=== PATIENT | female | born 1945 | race Caucasian/White ===

== ENCOUNTER 2017-05-16 13:05 | Outpatient (CLI) | payer OTHER | END 2017-05-16 20:36 | disposition home or self-care (01) | LOC: SMA 13:05 | PROVIDERS: ATTEND Family Medicine | DX: Z12.31 Encounter for screening mammogram for malignant neoplasm of breast (principal) | CPT/HCPCS: G0202 ==

== ENCOUNTER 2018-09-04 10:30 | Outpatient (CLI) | payer OTHER | END 2018-09-04 21:29 | disposition home or self-care (01) | LOC: SMA 10:30 | DX: Z12.31 Encounter for screening mammogram for malignant neoplasm of breast (principal) | CPT/HCPCS: 77067 ==

== ENCOUNTER 2022-11-23 00:55 | Inpatient (IN) | payer OTHER, MEDICAID ==
[~2022-11-23] VITALS: Ht 160 cm; Wt 57.6 kg
[2022-11-23 01:07] VITALS: BP_SYST 156
[2022-11-23 03:37] LABS: BASOPHILS % (AUTO) 0.3 % (0.0-2.0); EOSINOPHILS # (AUTO) 0.1 K/uL (0.0-0.4); EOSINOPHILS % (AUTO) 1.4 % (0.0-4.0); HEMATOCRIT 28.1 % (36-48); HEMOGLOBIN 9.4 g/dL (12.0-16.0); LYMPHOCYTES # (AUTO) 0.6 K/uL (1.0-5.5); MEAN CORPUSCULAR HEMOGLOBIN 30 pg (27-31); MEAN CORPUSCULAR HGB CONC 33 % (32-36); MEAN CORPUSCULAR VOLUME 89 fL (79.0-98.0); MONOCYTES # (AUTO) 0.6 K/uL (0.0-1.0); MONOCYTES % (AUTO) 7.9 % (1.7-9.3); NEUTROPHILS # (AUTO) 6.8 K/uL (1.8-7.7); NEUTROPHILS % (AUTO) 83.4 % (40.0-70.0); PLATELET COUNT (AUTO) 291 K/uL (130-430); RED BLOOD CELL COUNT(AUTO) 3.14 MIL/uL (4.2-6.2); WHITE BLOOD COUNT (AUTO) 8.1 K/uL (4.8-10.8)
[2022-11-23 03:55] LABS: ANION GAP 7 (5-15); CALCIUM 7.9 mg/dL (8.4-11.0); CHLORIDE 101 mmol/L (98-107); CREATININE 0.54 mg/dL (0.55-1.30); GLUCOSE 110 mg/dL (70-99); UREA NITROGEN, BLOOD 14 mg/dL (8-21)
[2022-11-23 04:02] LABS: ALANINE AMINOTRANSFERASE 23 U/L (12-78); ALBUMIN 2.9 g/dL (3.4-4.8); ASPARTATE AMINOTRANSFERASE 16 U/L (10-37); TOTAL BILIRUBIN 0.5 mg/dL (0.0-1.0)
[2022-11-23] MEDS ORDERED: HEPARIN SODIUM,PORCINE 5,000 UNITS/ML VIAL IVP ONE (05:00)
[2022-11-23] MEDS ORDERED: HEPARIN 25,000 UNITS/D5W 250ML 250 ML IV ONE (05:00)
[2022-11-23 05:17] LABS: INR 0.9 (0.8-1.2); PROTHROMBIN TIME 9.8 SECS (9.5-12.5)
[2022-11-23] MEDS ORDERED: ACET325T PO (06:40)
[2022-11-23] MEDS ORDERED: LIP40 PO (06:46)
[2022-11-23] MEDS ORDERED: CYCL10TA24 PO (06:46)
[2022-11-23] MEDS ORDERED: ESCI10TA PO (06:46)
[2022-11-23] MEDS ORDERED: AMLO5TAB4 PO (06:46)
[2022-11-23] MEDS ORDERED: DOCU-144 PO (06:46)
[2022-11-23] MEDS ORDERED: HYDR-3919 PO (07:02)
[2022-11-23] MEDS ORDERED: [UNRECOGNIZED DRUG - CODE] TD (07:02)
[2022-11-23] MEDS ORDERED: HYDR-4037 PO (07:02)
[2022-11-23] MEDS ORDERED: LISI40TA20 PO (07:02)
[2022-11-23] MEDS ORDERED: ASCO500T20 PO (07:02)
[2022-11-23] MEDS ORDERED: FERR-57 PO (07:02)
[2022-11-23] MEDS ORDERED: ZOFODT4 PO (07:02)
[2022-11-23] MEDS ORDERED: METO50TA16 PO (07:02)
[2022-11-23] MEDS ORDERED: LATA7.5D EACH EYE (07:02)
[2022-11-23] MEDS ORDERED: PANT40TA45 PO (07:02)
[2022-11-23 09:50] VITALS: BP_SYST 157
[2022-11-23 12:00] VITALS: BP_SYST 148
[2022-11-23 13:24] VITALS: BP_SYST 157
[2022-11-23 16:00] VITALS: BP_SYST 142
[2022-11-23 20:10] VITALS: BP_SYST 155
[2022-11-23] MEDS: PANTOPRAZOLE SODIUM 40 MG/VIAL (PROTONIX) IVP SCH (22:57)
[2022-11-24 00:14] VITALS: BP_SYST 153
[2022-11-24 07:18] LABS: TOTAL IRON BIND. CAPACITY 266 ug/dL (250-450)
[2022-11-24 07:32] LABS: BILIRUBIN,URINE NEGATIVE (NEGATIVE); CLARITY/URINE CLEAR (CLEAR); COLOR,URINE YELLOW (YELLOW); GLUCOSE,URINE NEGATIVE (NEGATIVE); KETONES,URINE NEGATIVE (NEGATIVE); LEUKOCYTE ESTERASE ,URINE NEGATIVE (NEGATIVE); NITRITE, URINE NEGATIVE (NEGATIVE); PROTEIN URINE NEGATIVE (NEGATIVE); UROBILINOGEN,URINE 0.2 (0.2-1.0)
[2022-11-24 07:41] LABS: BLOOD, URINE TRACE (NEGATIVE)
[2022-11-24 07:58] LABS: BACTERIA,URINE RARE /HPF (None Seen); MUCUS,URINE 1+ /LPF (None Seen); RBC,URINE 0-3 /HPF (0-3); WBC,URINE 0-3 /HPF (0-3)
[2022-11-24 08:00] VITALS: BP_SYST 144
[2022-11-24] MEDS: PANTOPRAZOLE SODIUM 40 MG/VIAL (PROTONIX) IVP SCH ×2 (09:02→22:05)
[2022-11-24 11:21] LABS: BASOPHILS % (AUTO) 0.6 % (0.0-2.0); EOSINOPHILS # (AUTO) 0.2 K/uL (0.0-0.4); EOSINOPHILS % (AUTO) 2.5 % (0.0-4.0); HEMATOCRIT 28.1 % (36-48); LYMPHOCYTES # (AUTO) 0.7 K/uL (1.0-5.5); MEAN CORPUSCULAR HEMOGLOBIN 29 pg (27-31); MEAN CORPUSCULAR HGB CONC 32 % (32-36); MEAN CORPUSCULAR VOLUME 90 fL (79.0-98.0); MONOCYTES # (AUTO) 0.6 K/uL (0.0-1.0); MONOCYTES % (AUTO) 8.1 % (1.7-9.3); NEUTROPHILS # (AUTO) 5.8 K/uL (1.8-7.7); NEUTROPHILS % (AUTO) 79.8 % (40.0-70.0); PLATELET COUNT (AUTO) 273 K/uL (130-430); RED BLOOD CELL COUNT(AUTO) 3.12 MIL/uL (4.2-6.2); RED CELL DISTRIBUTION WIDTH 15.2 % (9.0-15.0); WHITE BLOOD COUNT (AUTO) 7.3 K/uL (4.8-10.8)
[2022-11-24 11:26] VITALS: BP_SYST 137
[2022-11-24] MEDS ORDERED: LANS30CA53 PO (12:14)
[2022-11-24 15:27] VITALS: BP_SYST 136
[2022-11-24] MEDS: ACETAMINOPHEN 325 MG TABLET PO PRN (18:52)
[2022-11-24 20:00] VITALS: BP_SYST 162
[2022-11-24] MEDS: LATANOPROST 2.5 ML DROPS (XALATAN) OP SCH (21:55)
[2022-11-24] MEDS ORDERED: METOPROLOL SUCCINATE 50 MG TAB.SR.24H (TOPROL XL) PO ONE (22:15)
[2022-11-24 23:33] VITALS: BP_SYST 162
[2022-11-25 01:21] VITALS: BP_SYST 153
[2022-11-25 08:18] VITALS: BP_SYST 130
[2022-11-25] MEDS ORDERED: ESCITALOPRAM OXALATE 10 MG TABLET PO SCH (09:00)
[2022-11-25] MEDS: lisinopriL 20 MG TABLET PO SCH (09:15)
[2022-11-25] MEDS: CITALOPRAM HYDROBROMIDE 20 MG TABLET PO SCH (09:15)
[2022-11-25] MEDS: ATORVASTATIN 20 MG TABLET PO SCH (09:16)
[2022-11-25] MEDS: METOPROLOL SUCCINATE 50 MG TAB.SR.24H (TOPROL XL) PO SCH (09:16)
[2022-11-25] MEDS: PANTOPRAZOLE SODIUM 40 MG/VIAL (PROTONIX) IVP SCH ×2 (09:18→23:12)
[2022-11-25 10:06] LABS: FOLATE (FOLIC ACID) 12.6 ng/mL (>3.0)
[2022-11-25 11:34] VITALS: BP_SYST 147
[2022-11-25 15:40] VITALS: BP_SYST 149
[2022-11-25 20:00] VITALS: BP_SYST 141
[2022-11-25] MEDS: LATANOPROST 2.5 ML DROPS (XALATAN) OP SCH (21:00)
[2022-11-25] MEDS: FERROUS SULFATE 325 MG TABLET.DR PO SCH (22:06)
[2022-11-26] MEDS: ACETAMINOPHEN 325 MG TABLET PO PRN (00:27)
[2022-11-26 00:48] VITALS: BP_SYST 144
[2022-11-26 08:05] VITALS: BP_SYST 129
[2022-11-26] MEDS: ATORVASTATIN 20 MG TABLET PO SCH (09:19)
[2022-11-26] MEDS: CITALOPRAM HYDROBROMIDE 20 MG TABLET PO SCH (09:19)
[2022-11-26] MEDS: METOPROLOL SUCCINATE 50 MG TAB.SR.24H (TOPROL XL) PO SCH (09:20)
[2022-11-26] MEDS: FERROUS SULFATE 325 MG TABLET.DR PO SCH ×2 (09:20→21:28)
[2022-11-26] MEDS: lisinopriL 20 MG TABLET PO SCH (09:21)
[2022-11-26] MEDS ORDERED: ASPIRIN 81 MG TAB.CHEW PO ONE (11:30)
[2022-11-26 11:32] VITALS: BP_SYST 154
[2022-11-26] MEDS: PANTOPRAZOLE SODIUM 40 MG/VIAL (PROTONIX) IVP SCH ×2 (11:47→21:54)
[2022-11-26] MEDS ORDERED: SUCR1TAB2 PO (14:05)
[2022-11-26] MEDS ORDERED: ASPI-1393 PO (14:05)
[2022-11-26 15:19] VITALS: BP_SYST 144
[2022-11-26 20:00] VITALS: BP_SYST 141
[2022-11-26] MEDS: LATANOPROST 2.5 ML DROPS (XALATAN) OP SCH (21:00)
[2022-11-27] VITALS: BP_SYST 146
[2022-11-27 07:43] LABS: BASOPHILS % (AUTO) 0.9 % (0.0-2.0); EOSINOPHILS # (AUTO) 0.2 K/uL (0.0-0.4); EOSINOPHILS % (AUTO) 3.2 % (0.0-4.0); HEMATOCRIT 28.6 % (36-48); HEMOGLOBIN 9.4 g/dL (12.0-16.0); LYMPHOCYTES # (AUTO) 0.7 K/uL (1.0-5.5); LYMPHOCYTES % (AUTO) 13.1 % (20.5-51.5); MEAN CORPUSCULAR HEMOGLOBIN 28 pg (27-31); MEAN CORPUSCULAR HGB CONC 33 % (32-36); MEAN CORPUSCULAR VOLUME 87 fL (79.0-98.0); MONOCYTES # (AUTO) 0.4 K/uL (0.0-1.0); MONOCYTES % (AUTO) 7.8 % (1.7-9.3); NEUTROPHILS # (AUTO) 4.1 K/uL (1.8-7.7); PLATELET COUNT (AUTO) 329 K/uL (130-430); RED BLOOD CELL COUNT(AUTO) 3.29 MIL/uL (4.2-6.2); RED CELL DISTRIBUTION WIDTH 15.3 % (9.0-15.0); WHITE BLOOD COUNT (AUTO) 5.4 K/uL (4.8-10.8)
[2022-11-27 07:50] VITALS: BP_SYST 144
[2022-11-27 08:04] LABS: ANION GAP 7 (5-15); CALCIUM 8.2 mg/dL (8.4-11.0); CHLORIDE 98 mmol/L (98-107); CREATININE 0.52 mg/dL (0.55-1.30); GLUCOSE 104 mg/dL (70-99); UREA NITROGEN, BLOOD 17 mg/dL (8-21)
[2022-11-27] MEDS: PANTOPRAZOLE SODIUM 40 MG/VIAL (PROTONIX) IVP SCH ×2 (08:34→22:05)
[2022-11-27] MEDS: ASPIRIN 81 MG TAB.CHEW PO SCH (08:34)
[2022-11-27] MEDS: ATORVASTATIN 20 MG TABLET PO SCH (08:34)
[2022-11-27] MEDS: FERROUS SULFATE 325 MG TABLET.DR PO SCH ×2 (08:34→22:06)
[2022-11-27] MEDS: lisinopriL 20 MG TABLET PO SCH (08:35)
[2022-11-27] MEDS: CITALOPRAM HYDROBROMIDE 20 MG TABLET PO SCH (08:35)
[2022-11-27] MEDS: METOPROLOL SUCCINATE 50 MG TAB.SR.24H (TOPROL XL) PO SCH (08:36)
[2022-11-27 11:24] VITALS: BP_SYST 141
[2022-11-27 16:25] VITALS: BP_SYST 119
[2022-11-27 20:00] VITALS: BP_SYST 141
[2022-11-27] MEDS: ACETAMINOPHEN 325 MG TABLET PO PRN (20:04)
[2022-11-27] MEDS: LATANOPROST 2.5 ML DROPS (XALATAN) OP SCH (22:06)
[2022-11-28] VITALS (7 sets, daily range): BP systolic 137–156
[2022-11-28 07:33] LABS: BASOPHILS # (AUTO) 0.1 K/uL (0.0-0.2); BASOPHILS % (AUTO) 0.9 % (0.0-2.0); EOSINOPHILS # (AUTO) 0.2 K/uL (0.0-0.4); EOSINOPHILS % (AUTO) 4.1 % (0.0-4.0); LYMPHOCYTES # (AUTO) 0.7 K/uL (1.0-5.5); LYMPHOCYTES % (AUTO) 12.4 % (20.5-51.5); MEAN CORPUSCULAR HEMOGLOBIN 29 pg (27-31); MEAN CORPUSCULAR HGB CONC 33 % (32-36); MEAN CORPUSCULAR VOLUME 87 fL (79.0-98.0); MONOCYTES # (AUTO) 0.5 K/uL (0.0-1.0); MONOCYTES % (AUTO) 9.6 % (1.7-9.3); PLATELET COUNT (AUTO) 355 K/uL (130-430); RED BLOOD CELL COUNT(AUTO) 3.09 MIL/uL (4.2-6.2); RED CELL DISTRIBUTION WIDTH 15.5 % (9.0-15.0); WHITE BLOOD COUNT (AUTO) 5.5 K/uL (4.8-10.8)
[2022-11-28 07:43] LABS: ANION GAP 6 (5-15); CALCIUM 8.1 mg/dL (8.4-11.0); CHLORIDE 96 mmol/L (98-107); CREATININE 0.53 mg/dL (0.55-1.30); GLUCOSE 94 mg/dL (70-99); UREA NITROGEN, BLOOD 17 mg/dL (8-21)
[2022-11-28] MEDS: ATORVASTATIN 20 MG TABLET PO SCH (08:48)
[2022-11-28] MEDS: FERROUS SULFATE 325 MG TABLET.DR PO SCH ×2 (08:48→20:18)
[2022-11-28] MEDS: CITALOPRAM HYDROBROMIDE 20 MG TABLET PO SCH (08:48)
[2022-11-28] MEDS: PANTOPRAZOLE SODIUM 40 MG/VIAL (PROTONIX) IVP SCH ×2 (08:48→20:17)
[2022-11-28] MEDS: lisinopriL 20 MG TABLET PO SCH (08:49)
[2022-11-28] MEDS: ASPIRIN 81 MG TAB.CHEW PO SCH (08:49)
[2022-11-28] MEDS: METOPROLOL SUCCINATE 50 MG TAB.SR.24H (TOPROL XL) PO SCH (08:49)
[2022-11-28] MEDS: NACL 0.9% 1,000 ML IV SCH ×2 (14:43→20:18)
[2022-11-28] MEDS: LATANOPROST 2.5 ML DROPS (XALATAN) OP SCH (20:18)
[2022-11-29] VITALS: BP_SYST 131
[2022-11-29] MEDS: NACL 0.9% 1,000 ML IV SCH ×2 (02:52→17:08)
[2022-11-29 07:33] LABS: BASOPHILS % (AUTO) 0.7 % (0.0-2.0); EOSINOPHILS # (AUTO) 0.2 K/uL (0.0-0.4); EOSINOPHILS % (AUTO) 3.3 % (0.0-4.0); HEMATOCRIT 28.3 % (36-48); HEMOGLOBIN 9.3 g/dL (12.0-16.0); LYMPHOCYTES # (AUTO) 0.6 K/uL (1.0-5.5); LYMPHOCYTES % (AUTO) 10.2 % (20.5-51.5); MEAN CORPUSCULAR HEMOGLOBIN 28 pg (27-31); MEAN CORPUSCULAR HGB CONC 33 % (32-36); MEAN CORPUSCULAR VOLUME 87 fL (79.0-98.0); MONOCYTES # (AUTO) 0.5 K/uL (0.0-1.0); MONOCYTES % (AUTO) 8.9 % (1.7-9.3); NEUTROPHILS # (AUTO) 4.6 K/uL (1.8-7.7); NEUTROPHILS % (AUTO) 76.9 % (40.0-70.0); PLATELET COUNT (AUTO) 378 K/uL (130-430); RED BLOOD CELL COUNT(AUTO) 3.26 MIL/uL (4.2-6.2); RED CELL DISTRIBUTION WIDTH 15.3 % (9.0-15.0); WHITE BLOOD COUNT (AUTO) 5.9 K/uL (4.8-10.8)
[2022-11-29 07:59] LABS: ALANINE AMINOTRANSFERASE 27 U/L (12-78); ALBUMIN 2.8 g/dL (3.4-4.8); ANION GAP 6 (5-15); ASPARTATE AMINOTRANSFERASE 17 U/L (10-37); CHLORIDE 99 mmol/L (98-107); CREATININE 0.54 mg/dL (0.55-1.30); GLUCOSE 91 mg/dL (70-99); TOTAL BILIRUBIN 0.2 mg/dL (0.0-1.0); UREA NITROGEN, BLOOD 14 mg/dL (8-21)
[2022-11-29] MEDS: PANTOPRAZOLE SODIUM 40 MG/VIAL (PROTONIX) IVP SCH ×2 (09:00→21:28)
[2022-11-29] MEDS: ATORVASTATIN 20 MG TABLET PO SCH (09:00)
[2022-11-29] MEDS: ASPIRIN 81 MG TAB.CHEW PO SCH (09:00)
[2022-11-29] MEDS: FERROUS SULFATE 325 MG TABLET.DR PO SCH ×2 (09:01→21:26)
[2022-11-29] MEDS: lisinopriL 20 MG TABLET PO SCH (09:01)
[2022-11-29] MEDS: CITALOPRAM HYDROBROMIDE 20 MG TABLET PO SCH (09:01)
[2022-11-29] MEDS: METOPROLOL SUCCINATE 50 MG TAB.SR.24H (TOPROL XL) PO SCH (09:03)
[2022-11-29 11:33] VITALS: BP_SYST 123
[2022-11-29 17:04] VITALS: BP_SYST 147
[2022-11-29 20:00] VITALS: BP_SYST 140
[2022-11-29] MEDS: LATANOPROST 2.5 ML DROPS (XALATAN) OP SCH (21:39)
[2022-11-30 00:30] VITALS: BP_SYST 148
[2022-11-30] MEDS: NACL 0.9% 1,000 ML IV SCH (04:47)
[2022-11-30 08:25] VITALS: BP_SYST 117
[2022-11-30] MEDS: PANTOPRAZOLE SODIUM 40 MG/VIAL (PROTONIX) IVP SCH (09:06)
[2022-11-30] MEDS: lisinopriL 20 MG TABLET PO SCH (09:07)
[2022-11-30] MEDS: ASPIRIN 81 MG TAB.CHEW PO SCH (09:08)
[2022-11-30] MEDS: ATORVASTATIN 20 MG TABLET PO SCH (09:08)
[2022-11-30] MEDS: FERROUS SULFATE 325 MG TABLET.DR PO SCH (09:08)
[2022-11-30] MEDS: METOPROLOL SUCCINATE 50 MG TAB.SR.24H (TOPROL XL) PO SCH (09:09)
[2022-11-30] MEDS: CITALOPRAM HYDROBROMIDE 20 MG TABLET PO SCH (09:09)
[2022-11-30 11:30] VITALS: BP_SYST 118
[2022-11-30 15:26] VITALS: BP_SYST 140
[2022-11-30 15:36] VITALS: BP_SYST 140
== END 2022-11-30 18:35 | DRG 299 ==
LOC: SED 00:55 → STU 05:02 → SMU 11-24 11:12 → STU 11-26 15:15 → SMU 11-28 10:41
PROVIDERS: ADMIT Specialist; ATTEND Specialist
DX: I82.612 Acute embolism and thrombosis of superficial veins of left upper extremity (principal); I63.9 Cerebral infarction, unspecified; E87.1 Hypo-osmolality and hyponatremia; D64.9 Anemia, unspecified; E78.5 Hyperlipidemia, unspecified; I10 Essential (primary) hypertension; I25.10 Atherosclerotic heart disease of native coronary artery without angina pectoris; I65.23 Occlusion and stenosis of bilateral carotid arteries; X58.XXXA Exposure to other specified factors, initial encounter; J44.9 Chronic obstructive pulmonary disease, unspecified; E78.00 Pure hypercholesterolemia, unspecified; Z79.899 Other long term (current) drug therapy; Z87.891 Personal history of nicotine dependence; Y93.89 Activity, other specified; Y92.89 Other specified places as the place of occurrence of the external cause; Y99.8 Other external cause status; G83.10 Monoplegia of lower limb affecting unspecified side; H53.9 Unspecified visual disturbance
CPT/HCPCS: 36415; 36600; 70450-TC; 70551; 71045; 73060-TC; 76376; 80048; 80053; 81000; 82272; 82550; 82607; 82728; 82746; 82803-TC; 83540; 83550; 84484; 85025; 85044; 85610-TC; 85730-TC; 86886; 86900; 86901; 87081; 87101; 93005; 93306; 93880; 93971; 97110-GP; 97112-GP; 97116-GP; 97530-GP; 99285; C9113; G0378; J7030